=== PATIENT | male | born 1985 | race Caucasian/White ===

== ENCOUNTER 2019-03-24 14:35 | Emergency (ER) | payer BC, OTHER ==
[2019-03-24 14:52] VITALS: BP 134/77
--- NOTE | 2019-03-24 14:57 | UC ---
Knee Pain HPI - HPI Summary HPI Summary: Patient is a 33yo male presenting with right knee pain after slipping in wet grass this morning and hitting his knee on a rock. 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 States he still has full ROM but notes a shooting pain throughout his knee with "certain twisting movements" that he was unable to fully describe. Denies numbness and tingling. Denies hip or ankle pain. Denies any swelling or bruising. Denies any past knee surgery. Does note being kicked by a horse in the same knee approx 10 years ago. Says pain is better at rest. Ice is helping as well. - History of Current Complaint Chief Complaint: UCLowerExtremity Stated Complaint: KNEE INJURY Time Seen by Provider: 03/24/19 14:56 Hx Obtained From: Patient Onset/Duration: Sudden Onset Severity Initially: Moderate Severity Currently: Moderate Pain Intensity: 7 Pain Scale Used: 0-10 Numeric Character: Sharp Able to Bear Weight: Yes - Allergies/Home Medications Allergies/Adverse Reactions: Allergies Allergy/AdvReac Type Severity Reaction Status Date / Time amoxicillin Allergy Intermediate unk since Verified 03/24/19 14:54 childhood cefaclor [From Ceclor] Allergy unk, since Verified 03/24/19 14:54 childhood Home Medications: Home Medications NK [No Home Medications Reported] 03/24/19 [History Confirmed 03/24/19] PMH/Surg Hx/FS Hx/Imm Hx - Surgical History Surgical History: None - Family History Known Family History: Positive: Non-Contributory - Social History Alcohol Use: None Substance Use Type: None Smoking Status (MU): Never Smoked Tobacco Review of Systems All Other Systems Reviewed And Are Negative: No Constitutional: Positive: Negative Skin: Positive: Negative Respiratory: Positive: Negative Cardiovascular: Positive: Negative Motor: Negative: Decreased ROM, Weakness Neurovascular: Negative: Decreased Sensation Musculoskeletal: Positive: Arthralgia - right knee. Negative: Calf Tenderness, Decreased ROM, Edema, Myalgia Neurological: Positive: Negative. Negative: Paresthesia, Numbness Psychological: Positive: Negative Physical Exam Appearance: Well-Appearing, No Pain Distress, Well-Nourished Vital Signs: Initial Vital Signs Temp 98.8 F 03/24/19 14:46 Pulse 74 09/17/19 14:46 Resp 16 03/24/19 14:46 BP 134/77 03/24/19 14:46 Pulse Ox 97 03/24/19 14:46 Vital Signs Reviewed: Yes Eyes: Positive: Conjunctiva Clear ENT: Positive: Hearing grossly normal Neck: Positive: Supple Cardiovascular: Positive: Pulses Normal, Brisk Capillary Refill Musculoskeletal: Positive: Strength Intact, ROM Intact, No Edema Neurological: Positive: Alert Psychological Exam: Other - sensation grossly intact Psychological: Positive: Age Appropriate Behavior Skin: Positive: Other - superficial abrasion of right anteromedial knee. Diagnostics - Radiology right knee xray Radiology Interpretation Completed By: Radiologist Summary of Radiographic Findings: 4 views of the right knee demonstrates no fracture. No joint effusion is noted. No other bone or joint abnormality is identified. IMPRESSION: Unremarkable right knee. Knee Pain Course/Dx - Course Course Of Treatment: Discussed negative xray findings with patient. Patient instructed to use rest, ice, heat, elevation, and compression to help alleviate pain symptoms. Instructed to use OTC analgesics as directed for pain relief. If symptoms persist or worsen, patient instructed to follow up with the orthopedic referral given. Patient voiced understanding and agreed to treatment plan. - Differential Dx/Diagnosis Provider Diagnosis: Right knee pain Discharge ED - Sign-Out/Discharge Documenting (check all that apply): Patient Departure All imaging exams completed and their final reports reviewed: Yes - Discharge Plan Condition: Stable Disposition: HOME Patient Education Materials: Knee Pain (ED) Referrals: [facility] [Outside] Edin Rossi MD [Medical Doctor] - Additional Instructions: As discussed, your xrays did not show any fractures. Rest, ice, heat, elevation, and compression to help alleviate pain symptoms. Use ibuprofen as directed for pain relief. If pain symptoms persist or worsen, follow up with the [facility] or orthopedic referral as listed below. - Billing Disposition and Condition Condition: STABLE Disposition: Home
== END 2019-03-24 16:10 | disposition home or self-care (01) ==
LOC: UCEAST 14:35
DX: M25.561 Pain in right knee (principal)
CPT/HCPCS: 99201; G0463